=== PATIENT | male | born 1995 | race Caucasian/White ===

== ENCOUNTER 2020-05-01 15:39 | Emergency (ER) | payer OTHER, SELFPAY ==
[2020-05-01 15:53] VITALS: BP 146/91; PULSE 76; RESP 16; TEMP 36.4; O2SAT 100
--- NOTE | 2020-05-01 16:00 | ED.URI ---
HPI - URI/Sore Throat General Chief Complaint: Upper Respiratory Infection Stated Complaint: sore throat Time Seen by Provider: 05/01/20 15:55 Source: patient and RN notes reviewed Mode of arrival: ambulatory Limitations: no limitations History of Present Illness HPI Narrative: 24-year-old male who presents to [facility] care with complaints of sore throat for the past 1 week duration. Patient states that he has been taking Ibuprofen for his discomfort which has made it tolerable but once medication wears off pain increases. Patient denies any shortness of breath, cough, ear pain, sinus congestion or drainage. Patient states no known fevers chills or sweats. Patient states that he has had previous episodes of tonsillitis and strep throat. MD elicited complaint: sore throat Pertinent past history: other (tonsillitis) Onset (ago): week(s) (1) Consistency: constant Severity: moderate Pain scale (0-10): 5 Able to tolerate fluids by mouth: Yes Exacerbating factors: swallowing Relieving factors: NSAID Associated symptoms: denies other symptoms Treatments prior to arrival: ibuprofen Related Data Allergies Allergy/AdvReac Type Severity Reaction Status Date / Time dog dander Allergy Unknown Verified 10/26/17 21:20 No Known Allergies Allergy Verified 06/23/15 19:35 Review of Systems Review of Systems: Narrative: CONSTITUTIONAL: Denies fever, chills, or sweats. EYES: Denies visual changes, redness, or discharge. ENT: Denies rhinorrhea, congestion, positive for sore throat, no otalgia. CARDIOVASCULAR: Denies chest pain, palpitations, or edema. RESPIRATORY: Denies cough or dyspnea. GASTROINTESTINAL: Denies abdominal pain, nausea, vomiting, or diarrhea. GENITOURINARY: Denies dysuria or hematuria. SKIN: Denies rash or itching. MUSCULOSKELETAL: Denies back pain, joint pain, or myalgia. NEUROLOGIC: Denies headache, numbness, or weakness. PSYCHIATRIC: Denies anxiety or depression. All systems reviewed & are unremarkable except as noted in HPI and below PMFSH Past Medical History Medical History (Updated 05/02/20 @ 21:26 by Rosa Gibbs NP) Right eye injury Tonsillitis Social History Social History (Updated 05/02/20 @ 21:24 by Rosa Gibbs NP) Smoking status: Never smoker Alcohol intake: never Living arrangements: with family Gender identity (if verbalized by the patient): Male Comments At time of signature, agree with nursing past medical, surgical, social history. There is no relevant family history pertinent to the presenting complaint Exam Narrative: Exam Narrative: GENERAL: Well-appearing, well-nourished, and in no acute distress. HEAD: Normocephalic, atraumatic. EYES: PERRLA and EOMI. ENT: Nares clear, no rhinorrhea or epistaxis. Mucous membranes moist.TM's normal with good light reflex, throat red with tonsil swelling noted, no lesions or exudates, painful swallowing. NECK: Supple.no lymphadenopathy CHEST: Clear to auscultation. No respiratory distress. HEART: Regular rate and rhythm. No murmur heard. Normal peripheral pulses. ABDOMEN: Soft, nontender, nondistended, normal active bowel sounds. EXTREMITIES: Normal range of motion. No edema. SKIN: Warm, dry, no rash. NEURO: No focal deficits. Alert and oriented x3. Course Vital Signs Vital signs: Vital Signs Temperature 36.4 C 05/01/20 15:53 Pulse Rate 76 05/01/20 15:53 Respiratory Rate 16 05/01/20 15:53 Blood Pressure 146/91 H 05/01/20 15:53 Pulse Oximetry 100 05/01/20 15:53 Temperature 36.4 C 05/01/20 15:53 Pulse Rate 76 05/01/20 15:53 Respiratory Rate 16 05/01/20 15:53 Blood Pressure 146/91 H 05/01/20 15:53 Pulse Oximetry 100 05/01/20 15:53 MDM - URI/Sore Throat Differential Diagnosis Differential diagnosis: Likely upper respiratory infection, pharyngitis and other (strep throat, tonsillitis,) Medical Records Attestation: I reviewed the patient's medical records. Lab Data Attestation: I reviewed the patient'
== END 2020-05-01 16:27 | disposition home or self-care (01) ==
PROVIDERS: Emergency Provider Registered Nurse; PCP Family Medicine
DX: J03.90 Acute tonsillitis, unspecified (principal)
CPT/HCPCS: 87081; 87880; 99213; G0463

== ENCOUNTER 2023-12-03 17:55 | Emergency (ER) | payer OTHER, SELFPAY ==
--- NOTE | 2023-12-03 18:00 | ED.URI ---
HPI - URI/Sore Throat General Chief Complaint: Upper Respiratory Infection Stated Complaint: Flu symptoms Time Seen by Provider: 12/03/23 18:01 Source: patient Mode of arrival: ambulatory Limitations: no limitations History of Present Illness HPI Narrative: Dashawn is a 28-year-old male patient presenting to clinic today with complaints of flu-like symptoms since Sunday. He reports he has had fever, chills, body aches, and runny nose. MD elicited complaint: sore throat and nasal congestion Related Data Home Medications Medication Instructions Recorded Confirmed cetirizine 10 mg tablet (Zyrtec) 10 mg PO DAILY 12/03/23 12/03/23 Allergies Allergy/AdvReac Type Severity Reaction Status Date / Time dog dander Allergy Unknown Swelling Verified 12/03/23 18:09 Review of Systems Review of Systems: Pertinent positives per HPI. Patient denies any rash, headache, visual changes, dizziness, shortness of breath, chest pain, palpitations, nausea, vomiting, diarrhea, constipation, abdominal pain, or any urinary issues. [facility] Past Medical History Medical History Right eye injury Tonsillitis Social History Social History Smoking status: Never smoker Alcohol intake: never Living arrangements: with family Gender identity (if verbalized by the patient): Male Comments At the time of my signature, I reviewed and agree with the nursing past medical, surgical, social, and family history. There is no relevant family history pertinent to the patient complaint. Exam Narrative: General: Well-developed, well nourished, in no apparent distress Head: Normocephalic, atraumatic Eyes: Pupils equally round and reactive to light bilaterally, EOM intact, sclera and conjunctive clear, no discharge, lids normal Ears: TMs intact and congested, ear canals clear, no drainage, grossly hearing normal. Nose: Nares patent, clear nasal discharge, no inflammation, no sinus tenderness. Mouth: Oral pharynx without lesions or masses, good dentition, MMM. Neck: Supple, trachea midline, no enlargement of anterior or posterior cervical nodes, no thyroid masses or goiter palpable. Cardio: Regular rate and rhythm, s1 and s2 normal, no murmur appreciated. Resp: Clear to auscultation bilaterally, no rhonchi, rales, wheezing or rubs Course Course Emergency Course: Portions of this record may have been created with voice recognition software. Level of Care: Express Care Visit Vital Signs Vital signs: Vital signs reviewed MDM - URI/Sore Throat MDM Narrative Medical decision making narrative: At the time of visit patient is resting comfortably on the exam table. Patient appears to be nontoxic. Labs: Influenza a testing was positive in the clinic today. COVID testing was negative. Plan: I suspect patient has influenza A. Prescription for Tamiflu was sent to the pharmacy. Work note was given. Supportive measures were discussed with the patient and they voiced understanding discharge instructions and agrees to treatment plan. Return precautions reviewed Differential Diagnosis Differential diagnosis: Likely upper respiratory infection, otitis media, sinusitis, viral infection, bronchitis, influenza, pharyngitis and other (COVID) Discharge Plan Discharge Clinical Impression: Influenza A Patient Disposition: Home, Self-Care Condition: Stable Instructions: Antibiotic Form, Influenza (ED) Additional Instructions: Take prescription medications only as prescribed-Tamiflu Increase fluids and stay well hydrated Tylenol/motrin for pain/fever Flonase and OTC antihistamines as directed Vicks vapor rub to open sinuses Sinus rinses for congestion Cepacol spray, cough drops, throat lozenges, warm tea with honey/lemon, gargle salt water to soothe throat BRAT diet for diarrhea Clear liquids x 24 hours
[2023-12-03 18:05] VITALS: BP 128/82; PULSE 90; RESP 16; TEMP 37; O2SAT 98
== END 2023-12-03 18:50 | disposition home or self-care (01) ==
PROVIDERS: Emergency Provider Nurse Practitioner Family; PCP Family Medicine
DX: J10.1 Influenza due to other identified influenza virus with other respiratory manifestations (principal); Z20.822 Contact with and (suspected) exposure to COVID-19
CPT/HCPCS: 87426; 87804; 99213; G0463

== ENCOUNTER 2025-08-17 13:50 | Outpatient (CLI) | payer OTHER, SELFPAY ==
--- NOTE | ~2025-08-17 | CT_ITS ---
EXAMINATION: CT sinus wo con DATE: 08/17/2025 14:02 INDICATION: Deviated nasal septum TECHNIQUE: Computed tomography (CT) of the paranasal sinuses was performed without intravenous contrast. Coronal reconstructions were obtained. Iterative reconstruction technique was employed. The dose-length product was 292.39 mGy-cm. COMPARISON: None FINDINGS: There is scattered mild to moderate mucosal thickening the paranasal sinuses most prominent in the bilateral ethmoid, right sphenoid and inferior aspect of the bilateral maxillary sinuses. This results in occlusion of the bilateral ostiomeatal units as well as the bilateral frontoethmoidal recesses. There is rightward deviation of the nasal septum resulting in asymmetric relative narrowing of the space between the septum and the indeterminate on the right when compared with space on the left. Orbits are normal. Bilateral mastoid air cells and middle ear cavities are clear. IMPRESSION: 1. Mild to moderate mucosal thickening throughout the paranasal sinuses with occlusion of the bilateral ostiomeatal units and frontoethmoidal recesses. 2. Rightward deviation of the nasal septum. Reviewed, dictated and finalized at location A. IMPRESSION: 1. Mild to moderate mucosal thickening throughout the paranasal sinuses with oc clusion of the bilateral ostiomeatal units and frontoethmoidal recesses. 2. Rightward deviation of the nasal septum.
== END 2025-08-17 13:51 | disposition home or self-care (01) ==
LOC: MICIMG 13:51
PROVIDERS: PCP Family Medicine; Visit Provider Otolaryngology
DX: J34.2 Deviated nasal septum (principal); J34.3 Hypertrophy of nasal turbinates; J35.2 Hypertrophy of adenoids; J34.89 Other specified disorders of nose and nasal sinuses; J32.9 Chronic sinusitis, unspecified
CPT/HCPCS: 70486

== ENCOUNTER 2025-09-15 06:41 | Day surgery (SDC) | payer OTHER, SELFPAY ==
[2025-09-03 10:31] VITALS: BMI 29.1
--- NOTE | 2025-09-13 15:52 | P.HP_ITS ---
H&P: HPI History of Present Illness Date/Time: 09/13/25 15:52 Chief Complaint: Nasal obstruction nasal congestion septal deviation turbinate hypertrophy Narrative: planned surgical procedure Review of Systems Review of Systems: All systems reviewed & are unremarkable except as noted in HPI and below [facility] Past Medical History Medical History Tonsillitis Right eye injury Social History Social History Smoking status: Former smoker Tobacco type: cigarettes Second hand tobacco smoke exposure: Yes Alcohol intake: current Drinks per week: 3 Substance use type: does not use Living arrangements: with family Gender identity (if verbalized by the patient): Male Spiritual care concerns: No Meds Home Medications and Allergies Home Medications ?Medication ?Instructions ?Recorded ?Confirmed ?Type cetirizine 10 mg tablet (Zyrtec) 10 mg PO DAILY 09/03/25 History fluticasone propionate 50 1 spray intranasal DAILY PRN 09/03/25 09/03/25 History mcg/actuation nasal allergy symptoms spray,suspension (Flonase Allergy Relief) Allergies Allergy/AdvReac Type Severity Reaction Status Date / Time animal dander Allergy Intermediate Swelling Verified 09/03/25 10:41 Exam Narrative: septal deviation turbinate hypertrophy Assessment and Plan Assessment and plan (1) Nasal septal deviation: Code(s): J34.2 - Deviated nasal septum Status: Acute Assessment and Plan: plan OR endoscopic assisted septoplasty with bilateral inferior turbinate reduction without fractures as well as transnasal adenoidectomy versus marsu pialization of nasopharyngeal cyst. Total operative time 1.5 hours. Anesthesia general. Risks were discussed including bleeding infection time off work time off school need for splint placement and splint removal had risk of antibiotic and narcotic use. Septal perforation change in cosmetic appearance failure to resolve symptoms need for further procedures central incisor numbness which could be permanent. Change in taste change in swallow. CSF leak brain brain damage change in vision total blindness. Damage to any structures above the clavicles by myself damage any structures during induction remains of anesthesia including vocal cord paralysis. Patient voiced understanding of these risks and agreed. We also discussed the possible need for sinus surgery given disease sinuses on CT scan. (2) Hypertrophy of both inferior nasal turbinates: Code(s): J34.3 - Hypertrophy of nasal turbinates Status: Acute (3) Nasal obstruction: Code(s): J34.89 - Other specified disorders of nose and nasal sinuses Status: Acute (4) Nasal congestion: Code(s): R09.81 - Nasal congestion Status: Acute (5) Adenoid hypertrophy: Code(s): J35.2 - Hypertrophy of adenoids Status: Acute
[2025-09-15 07:08] VITALS: BP 124/83; PULSE 60; RESP 18; TEMP 37; O2SAT 98
[2025-09-15] MEDS: ACETAMINOPHEN 500 MG TABLET 1000 MG PO (07:12)
[2025-09-15] MEDS: LACTATED RINGERS 1,000 ML 30 ML IV CONT (07:13)
--- NOTE | 2025-09-15 07:35 | WPDHPUPDATE1 ---
History and Physical Update Update Date/Time: 09/15/25 07:35 History and Physical has been reviewed, including an updated exam of the patient. There are NO changes in the patient's condition. Risks, benefits, and alternatives have been discussed and questions answered. Patient agrees to proceed with procedure.
--- NOTE | 2025-09-15 08:46 | WPDANESEPPF ---
Anes - Initial Pre Proc Eval Procedure: Operation Date: 09/15/25 08:30 Proposed Procedures p Endoscopic Assisted Septoplasty - Abhishek Hercules MD s Bilateral Inferior Turbinate Reduction with Outfracture - Abhishek Hercules MD Date/Time: 09/15/25 08:46 Surgeon: Abhishek Hercules MD Pre Op Diagnosis: Chronic Sinusitis, Hypertrophy of Nasal Turbinate Patient Data Age: 30 Gender: M Height: 1.78 m Weight: 91.45 kg Last Vital Signs Temp 37.0 C 09/15/25 07:08 Pulse 60 09/15/25 07:08 Resp 18 09/15/25 07:08 BP 124/83 09/15/25 07:08 Pulse Ox 98 09/15/25 07:08 O2 Del Method Room Air 09/15/25 07:08 Allergies Allergy/AdvReac Type Severity Reaction Status Date / Time animal dander Allergy Intermediate Swelling Verified 09/15/25 07:07 Home Medications ?Medication ?Instructions ?Recorded ?Confirmed ?Type cetirizine 10 mg tablet (Zyrtec) 10 mg PO DAILY 12/03/23 09/15/25 History fluticasone propionate 50 1 spray intranasal DAILY PRN 09/03/25 09/15/25 History mcg/actuation nasal allergy symptoms spray,suspension (Flonase Allergy Relief) Patient hx anesthesia problems: none Family hx anesthesia problems: none Results Review: All pre-operative results and documents have been reviewed as part of the pre-operative evaluation. [facility] Past Medical History Medical History Tonsillitis Right eye injury Social History Social History Smoking status: Former smoker Tobacco type: cigarettes Second hand tobacco smoke exposure: Yes Alcohol intake: current Drinks per week: 3 Substance use type: does not use Living arrangements: with family Gender identity (if verbalized by the patient): Male Spiritual care concerns: No Anes - Eval Final PreProcedure Day of Procedure 09/15/25 08:46 Patient weight: normal Heart: regular rate and rhythm Lungs: clear to auscultation Airway: Mallampati scale class II Neurological: alert and oriented Last oral intake: >/= 8 hours ASA classification: I Emergent: no Anesthetic plan: proceed Anesthesia type and monitoring: general and standard monitoring Results Review: All pre-operative results and documents have been reviewed as part of the pre-operative evaluation. Informed Consent: The patient's anesthetic plan and its attendant risks and benefits were discussed with the patient/family/POA. Questions were solicited and answers provided to the satisfaction of the patient/family/POA.
[2025-09-15] MEDS: ceFAZolin 2 GM in SODIUM CHLORIDE 0.9% IV 50 ML 100 ML IVPB (09:15)
[2025-09-15] MEDS: LIDO 1%/EPINEPHRINE 1:100,000 20 ML VIAL INFILTRATE (09:35)
[2025-09-15] MEDS: OXYMETAZOLINE HCL 0.05% NAS 15 ML BTL (*BKC) 1 SPRAY NASAL (09:39)
[2025-09-15] MEDS: MUPIROCIN 2% OINT 22 GM TUBE 1 APPLIC (10:44)
[2025-09-15 10:58] VITALS: BP 132/91; PULSE 82; RESP 14; TEMP 36.2; O2SAT 98
--- NOTE | 2025-09-15 10:59 | P.OP_ITS ---
Procedure Note - Detailed Date of Procedure 09/15/25 Pre-op Diagnosis Chronic Sinusitis, Hypertrophy of Nasal Turbinate, nasal congestion, nasal obstruction, nasopharyngeal cyst, septal deviation Post-op Diagnosis Same Procedure Performed 1. Endoscopic assisted septoplasty 2. Inferior turbinate reduction bilaterally with outfracture 3. Excision of nasopharyngeal cyst Surgeon Abhishek Hercules MD Anesthesia General Indications See above Findings Nasopharyngeal cyst marsupialized minimal bleeding large turbinates greatly reduced ensued severely deviated rightward nasal septum much much improved appearance postoperatively. Excess bleeding as well probably 25 cc. Description of Procedure Patient identified consent verified in the preoperative holding area. Patient brought to the operating room. Time-out performed. General anesthesia induced endotracheal tube secured airway. Patient prepped draped position procedure confirmed 2nd time-out performed. 0 degree endoscope utilized for the procedure. Total 15 cc 1% lidocaine 1 100 parts epinephrine injected bilateral nasal septum and inferior turbinates. Nasopharyngeal cyst biopsy more soupy ally is with microdebrider edges cauterized. Minimal if any bleeding. Oxly incision made left-sided on the nasal septum life nasal septal flap elevated no tears osteotome utilized crossover right nasal septal flap elevated tears over the large spur. Deviated nasal septum removed osteotome [place] Chavez forceps Summer forceps. Da incision closed with 4 interrupted 5 0 fast gut sutures. Turbinates reduced there was stabbed anteriorly the 15 blade these of inferior turbinates. They were reduced in the submucosal plane of microdebrider with 2 mm Quant the Newstr[place] turbinate blade. Then outfractured [place] elevator. Bleeding bilateral nasal passages the copiously irrigated out bleeding. Bleeding well controlled. Total blood loss 25 cc. Hill splints placed sutured anteriorly to 3-0 mattress nylon suture. I performed all dictated portion procedure no complications care the patient back to Anesthesiology. Patient taken to PACU. Estimated Blood Loss 25 Drains No Packing No Pathology Yes Complications No immediate complications Condition Stable Disposition PACU [facility] Billing Surgery - Charge Forward: Surgery Billing
[2025-09-15 11:10] VITALS: BP 133/91; PULSE 88; RESP 16; O2SAT 98
[2025-09-15 11:25] VITALS: BP 134/97; PULSE 82; RESP 12; O2SAT 100
[2025-09-15 11:30] VITALS: BP 130/98; PULSE 79; RESP 16; O2SAT 97
[2025-09-15 11:55] VITALS: BP 140/100; PULSE 82; RESP 16
== END 2025-09-15 12:10 | disposition home or self-care (01) ==
PROVIDERS: PCP Family Medicine; Visit Provider Otolaryngology
PROC: (CPT 30520; principal; 2025-09-15 08:30)
PROC: (CPT 30520; 2025-09-15 08:30)
DX: J32.9 Chronic sinusitis, unspecified (principal); J34.3 Hypertrophy of nasal turbinates; J34.2 Deviated nasal septum; J39.2 Other diseases of pharynx; J34.89 Other specified disorders of nose and nasal sinuses
CPT/HCPCS: 30520; 30140; 42808

== ENCOUNTER 2025-09-15 07:46 | Outpatient (NON) | payer OTHER, SELFPAY ==
--- NOTE | 2025-09-15 | S_PTH ---
PATIENT: Dashawn Watson LOC: [facility] U#:[id number] AGE/SX: 30/M ROOM: RE09/15/[address]: Abhishek Hercules MD : 1995 BED: DIS: 09/15/2025 SPEC #: [id number] RECD: 09/16/25 09:13 STATUS: JAZLYN GIRALDO #: [id number] VARGHESE: 09/15/25 00:[address]: Abhishek Hercules DEPT: [facility] Surgical RECD BY: Gema Mccann ENTERED: 09/16/25 09:13 SP TYPE: Surgical OTHR DR: Zbigniew Cardoso MD Tissues: A - Skin Procedures: Hematoxylin and Eosin Stain Gross and Microscopic Level 4
== END 2025-09-15 07:47 | disposition home or self-care (01) ==
LOC: ANHLAB 09-16 07:47
PROVIDERS: PCP Family Medicine; Visit Provider Otolaryngology
DX: T17.0XXA Foreign body in nasal sinus, initial encounter (principal); J32.8 Other chronic sinusitis
CPT/HCPCS: 88305